=== PATIENT | male | born 1960 | race Caucasian/White ===

== ENCOUNTER 2023-09-09 01:15 | Emergency (ER) | payer OTHER ==
[2023-09-09] MEDS: Acetaminophen 500 MG Tab PO ONE (01:31)
[2023-09-09] MEDS: Ibuprofen 600 MG Tab PO ONE (01:31)
== END 2023-09-09 02:43 | disposition home or self-care (01) ==
LOC: MW.ED 01:15
DX: S09.90XA Unspecified injury of head, initial encounter (principal); Z88.0 Allergy status to penicillin; Z79.899 Other long term (current) drug therapy; Z75.8 Other problems related to medical facilities and other health care; W18.39XA Other fall on same level, initial encounter
CPT/HCPCS: 70450; 70450-26; 72131; 72131-26; 72192; 72192-26; 99283